=== PATIENT | male | born 1995 | race Caucasian/White ===

== ENCOUNTER 2021-07-10 19:23 | Day surgery (SDC) | payer MEDICAID, SELFPAY ==
[2021-07-10] VITALS (9 sets, daily range): BP systolic 107–149; BP diastolic 63–77; PULSE 52–108; RESP 14–18; TEMP 36.6–36.9; O2SAT 95–100; BMI 18.7
[2021-07-10] MEDS: nitroglycerin 0.4 mg sublingual Tablet SUBLINGUAL (20:07)
--- NOTE | 2021-07-10 20:18 | W.ED.GENADLT ---
HPI - General Adult General: Chief complaint: Airway/Esophagus Foreign Body Stated complaint: FOOD STUCK IN THROAT Time Seen by Provider: 07/10/21 19:51 Source: patient Mode of arrival: ambulatory Limitations: no limitations History of Present Illness: HPI narrative: 26-year-old male who states that he had eaten a normal bar 7 hours ago and feels like it stuck in his throat. He states he is not been able to handle secretions or swallow since then. He states he has had this happen multiple times in the past states he was able to throw it up. He has never had a EGD in the past. Denies any worsening improving factors. Associated symptoms: Deny chest pain, dyspnea, headache(s), nausea, rash or vomiting Review of Systems Const: Denies: fever(s), chills, body aches or change in appetite Eyes: Denies: blurry vision or eye discomfort ENMT: Reports: odynophagia Card: Denies: chest pain Resp: Denies: dyspnea GI: Denies: abdominal pain, nausea, vomiting or diarrhea : Denies: dysuria Musc: Denies: neck pain or back pain Skin/Breast: Denies: rash Neuro: Denies: headache(s) Psych: Denies: depression Matias/Lymph: Denies: easy bruising All/Imm: Denies: urticaria Physical Exam Const: COMMON NORMALS: no acute distress, patient oriented x3 and healthy appearing HENMT: COMMON NORMALS: normocephalic and atraumatic HEAD & SCALP: normocephalic and atraumatic Eye: COMMON NORMALS: Equal, round and reactive pupils present and EOMs intact bilaterally PUPIL: Yes Equal, round and reactive pupils present Neck/C-Spine: COMMON NORMALS: full ROM and supple Chest: COMMONS NORMALS: normal inspection of the chest and normal palpation of entire chest wall Resp: COMMON NORMALS: normal respiratory effort, No retractions, No use of accessory muscles and clear to auscultation bilaterally AUSCULTATION: clear to auscultation bilaterally Cardio: COMMON NORMALS: regular rate, regular rhythm and No murmurs present (Cardio) RATE: regular rate RHYTHM: regular rhythm GI: COMMON NORMALS: Normal to inspection, nondistended, normoactive bowel sounds present, Soft to palpation, non-tender and no masses PALPATION: Yes Soft to palpation Extremity: COMMON NORMALS: normal to inspection and full ROM Neuro: COMMON NORMALS: patient oriented x3, moves all extremities and no focal motor deficits Psych: COMMON NORMALS: mental status grossly normal, Normal thought process present and cooperative THOUGHT PROCESS: Normal thought process present Skin: COMMON NORMALS: no rashes or lesions noted and no wounds GENERAL SKIN EXAM: no rashes or lesions noted Course Vital Signs: Vital signs: Vital Signs Temperature 97.9 F 07/10/21 19:40 Pulse Rate 73 07/10/21 20:09 Respiratory Rate 18 07/10/21 20:09 Blood Pressure 107/68 07/10/21 20:09 Pulse Oximetry 99 07/10/21 20:09 MDM - General Adult MDM Narrative: Medical decision making narrative: Patient presents here with esophageal food bolus I spoke to Dr. Barone's who is coming in to take patient to the GI lab for an EGD. I did give him glucagon here and he had no improvement. Discharge Plan Discharge Patient Disposition: Admitted As Inpatient Clinical Impression: Food impaction of esophagus Qualifiers: Encounter type: initial encounter Qualified Code(s): T18.128A - Food in esophagus causing other injury, initial encounter Condition: Stable Coding Level of Care Code ED Master Scheduler for [facility] Fwd Exam Comprehensive
--- NOTE | 2021-07-10 20:20 | XRR_ITS ---
PROCEDURE INFORMATION: Exam: XR Soft Tissue Neck Exam date and time: 07/10/2021 8:20 PM Age: 26 years old Clinical indication: Dysphagia / difficulty swallowing TECHNIQUE: Imaging protocol: XR of the soft tissues of the neck. COMPARISON: No relevant prior studies available. FINDINGS: Airway: Normal. No abnormal narrowing. Soft tissues: Normal. Normal epiglottis. Bones/joints: Unremarkable. XR/XR soft tissue neck [id number] IMPRESSION: No acute findings.
--- NOTE | 2021-07-10 20:35 | PC.NURSE ---
glass of water provided.
--- NOTE | 2021-07-10 20:46 | XRR_ITS ---
PROCEDURE INFORMATION: Exam: XR Chest Exam date and time: 07/10/2021 8:46 PM Age: 26 years old Clinical indication: Other: Difficulty swallowing; Additional info: Fb, difficulty swallowing. TECHNIQUE: Imaging protocol: XR of the chest. Views: 1 view. COMPARISON: CR (NECK, ) 07/10/2021 8:19 PM FINDINGS: Lungs: Unremarkable. No consolidation. Pleural spaces: Unremarkable. No pleural effusion. No pneumothorax. Heart/Mediastinum: Unremarkable. No cardiomegaly. Bones/joints: Unremarkable. XR/XR chest 1V portable [id number] IMPRESSION: No acute findings.
--- NOTE | 2021-07-10 21:38 | PC.NURSE ---
Dr. Rolon at bedside. 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
--- NOTE | 2021-07-10 21:47 | W.PM.OPSFHP ---
Same Day Surgery H&P Indication for Procedure/HPI DATE OF PROCEDURE: July 10, 2021 CHIEF COMPLAINT/INDICATIONFOR SURGICAL PROCEDURE: Difficulty in swallowing PREOP DIAGNOSIS: Dysphagia PLANNED PROCEDRUE: Diagnostic EGD with possible food disimpaction This is a pleasant 26 years old gentleman with history of having granola bar at lunchtime, after couple of bites patient felt that food got stuck and was not able to expel it back and try to drink water but he would vomited it and felt discomfort, it has been about 7 hours and as his symptoms got worse came to the ER for further work-up and a soft tissue neck and chest x-rays were obtained that showed no acute findings. Patient said that this happened before few times but he never made it to the ER usually it resolves on its own. Patient denies hematemesis General surgery was consulted for further evaluation and care ROS All systems have been reviewed negative except as per the above or per problem list Medications/Allergies* Allergies/Adverse Reactions Allergy/AdvReac Type Severity Reaction Status Date / Time No Known Allergies Allergy Verified 07/10/21 21:51 Pertinent Exam Findings alert, oriented x 3, clear to auscultation bilaterally (No crepitus), regular rate & rhythm and procedure specific exam findings (Abdominal examination nontender abdominal examination nontender nondistende) Recommendations Surgery/Procedure today (EGD with possible food disimpaction) Other Plans: Plan of care; After thorough history and physical examination and reviewing the chart, plan to perform a diagnostic esophagogastroduodenoscopy with possible food disimpaction I discussed with the patient in detail the risk,benefits,alternatives and indications.The risk of aspiration, bleeding, soft tissue injury, perforation of the stomach/esophagus and other potential concomitant complications were explained to the patient in details,aslo the potential need for Thoracic and or Abdominal surgery to repair any complications.The patient understood this well and did agree to proceed. Rationale was carefully and clearly discussed with the patient.Appropriate informed consent have been reviewed and signed All questions have been answered and all concerns have been addressed to patient's satisfaction. Coding Level of Care Code Acute Aeronautical Inspector for Agnies[facility] Sykes
--- NOTE | 2021-07-10 22:01 | ANES.PREANE2 ---
Pre-Anesthetic Assessment Pre-Anesthetic Assessment: Height/Weight: Height 1.91 m Weight 68.039 kg Temp Pulse Resp BP Pulse Ox 97.9 F 73 18 120/77 95 07/10/21 21:51 07/10/21 21:51 07/10/21 21:51 07/10/21 21:51 07/10/21 21:51 Preop Diagnosis: Dysphagia Proposed Procedure: Operation Date: 07/10/21 22:00 Proposed Procedures p EGD(Not Applicable) - Darrel Rolon MD Was Beta Regine taken within 24 hours: N/A Was Clonidine taken within 24 hours: N/A Last intake: 07/10/21 1200 chewing tobacco 0 Social: Social History: Alcohol and Tobacco (chewing tobacco 1899) Exam: Pre-Anes Outpt Exam: alert, No oriented x 3, No clear to auscultation bilaterally and No regular rate & rhythm Airway: Submandibular: WNL Cervical ROM: WNL MP: 2 Dentition: Other Additional comments: poor dentition History/ROS: No significant history except as noted Pulmonary: Pulmonary: None reported CV/HEM: CV/HEM: None reported : : None reported Hepatic: Hepatic: None reported GI: GI: GERD Metabolic: Metabolic: None reported Musc/skel: Musc/skel: None reported Neuropsych: Neuropsych: Anxiety and Depression Anesthetic Plan: ASA status: 2 Anesthesia: General Risk of > 500 ml blood loss (7ml/kg in children): No Data Anesthesia Cardiac Studies: No Data to Display
[2021-07-10] MEDS: sodium chloride 0.9% 1,000 ML 30 ML IV (22:13)
== END 2021-07-10 23:30 | disposition home or self-care (01) ==
LOC: ER 21:16 → GILAB 21:52
PROVIDERS: Emergency Provider Emergency Medicine; Visit Provider Surgery
DX: R13.10 Dysphagia, unspecified (principal); K22.2 Esophageal obstruction; K29.70 Gastritis, unspecified, without bleeding
CPT/HCPCS: 43249; 70360; 71045; 96360; 96372; J0330; J1610; J2704; J3490; J7030

== ENCOUNTER → 2021-08-01 11:58 | Outpatient (BNVA) | payer OTHER, SELFPAY | PROVIDERS: Visit Provider Surgery | DX: K22.2 Esophageal obstruction (principal); Z20.822 Contact with and (suspected) exposure to COVID-19 | CPT/HCPCS: 87635 ==

== ENCOUNTER 2021-08-06 08:19 | Day surgery (SDC) | payer MEDICAID, SELFPAY ==
[2021-08-06 09:03] VITALS: BP 105/65; PULSE 52; RESP 18; TEMP 36.9; O2SAT 100
[2021-08-06] MEDS: sodium chloride 0.9% 1,000 ML 30 ML IV (09:14)
--- NOTE | 2021-08-06 09:59 | W.PM.OPSUD ---
Surgery/Procedure H&P Update DATE OF PROCEDURE: August 06, 2021 DATE H&P PERFORMED: 07/17/21 H&P UPDATE INFORMATION: I have reviewed H&P completed within last 30 days, I have examined patient prior to procedure and No changes to prior documentation PREOP DIAGNOSIS: Esophageal stricture PRIMARY INDICATION FOR PROCEDURE: The same PLANNED PROCEDURE: Operation Date: 08/06/21 10:00 Proposed Procedures p EGD Dilation W/ Balloon 59976 K22.2(Not Applicable) - Darrel Rolon MD
--- NOTE | 2021-08-06 10:34 | P.ANESASSM_ITS ---
Documented by User: Ryan Garcia Jr, MANAGEMENT AND BUDGET ANALYST 08/06/21 10:35 Pre-Anesthetic Assessment Pre-Anesthetic Assessment: Height/Weight: Height 1.91 m Weight 68.039 kg Temp Pulse Resp BP Pulse Ox 98.5 F 52 L 18 105/65 100 08/06/21 09:03 08/06/21 09:03 08/06/21 09:03 08/06/21 09:03 08/06/21 09:03 Preop Diagnosis: Esophageal stricture Proposed Procedure: Operation Date: 08/06/21 10:00 Proposed Procedures p EGD Dilation W/ Balloon 32116 K22.2(Not Applicable) - Darrel Rolon MD Was Beta Regine taken within 24 hours: N/A Was Clonidine taken within 24 hours: N/A Last intake: Intake Last Liquid Date 08/05/21 Last Liquid Time 23:30 Last Solid Date 08/05/21 Last Solid Time 23:30 Social: Social History: No alcohol and No tobacco Exam: Pre-Anes Outpt Exam: alert, oriented x 3, clear to auscultation bilaterally and regular rate & rhythm Airway: Submandibular: WNL Cervical ROM: WNL MP: 2 Dentition: Full History/ROS: No significant history except as noted and No significant c omplaints Pulmonary: Pulmonary: None reported CV/HEM: CV/HEM: None reported : : None reported Hepatic: Hepatic: None reported GI: GI: None reported Metabolic: Metabolic: None reported Musc/skel: Musc/skel: None reported Neuropsych: Neuropsych: None reported Anesthetic Plan: ASA status: 1 Anesthesia: MAC Risk of > 500 ml blood loss (7ml/kg in children): No Meds/Allergies Current Medications: Current Medications Generic Name Dose Route Start Last Admin Trade Name Freq PRN Reason Stop Dose Admin Sodium Chloride 1,000 mls @ 30 ml s/hr 08/06/21 09:00 08/06/21 09:14 Sodium Chloride 0.9% IV 08/07/21 08:59 30 mls/hr .Q24H MINDY Administration PFSH Anesthesia PFSH: Social History Smoking and tobacco status: never smoked Data Anesthesia Cardiac Studies: No Data to Display Documented by User: Herb Ga 08/06/21 12:19 PFSH Anesthesia PFSH: Social History Smoking and tobacco status: never smoked Data Anesthesia Cardiac Studies: No Data to Display
[2021-08-06 10:58] VITALS: BP 97/51; PULSE 57; RESP 16; TEMP 36.1; O2SAT 99
--- NOTE | 2021-08-06 11:00 | SUR.OPER ---
1044 Balloon dilation with 10, 11, 12 mm balloon. Clotest performed with clip used following biopsy.
[2021-08-06 11:09] VITALS: BP 92/50; PULSE 55; RESP 18; O2SAT 99
--- NOTE | 2021-08-06 14:11 | ANE.PACU2 ---
Inpatient post-anesthesia follow up: Airway intact: Yes Vital signs: Temperature 97.0 F Pulse Rate 55 Respiratory Rate 18 Blood Pressure 92/50 Pulse Oximetry 99 Oxygen Delivery Me thod Room Air Oxygen Flow Rate 4 Fraction of Inspir ed Oxygen Hydration adequate: Yes Nausea and vomiting: No Pain level: 1 Mental status: Baseline
[2021-08-07 13:19] LABS: H. Pylori / CLO Test Negative
== END 2021-08-06 11:35 | disposition home or self-care (01) ==
PROVIDERS: Visit Provider Surgery
DX: K22.2 Esophageal obstruction (principal); K21.00 Gastro-esophageal reflux disease with esophagitis, without bleeding; K29.70 Gastritis, unspecified, without bleeding
CPT/HCPCS: 43239; 43249; 87077; 96360; J2704; J7030

== ENCOUNTER 2021-09-04 08:04 | Outpatient (CLI) | payer MEDICAID, SELFPAY ==
--- NOTE | 2021-09-04 08:33 | FL_ITS ---
WS: [id number] UPPER GI WITH AIR TECHNICAL: FLUOROSCOPY TIME: 3.8 minutes CLINICAL INFORMATION: K22.2 - Esophageal obstruction COMPARISON: None. FINDINGS: Swallowing: No aspiration or penetration. Esophagus: Normal esophageal motility. Mild smooth tapered narrowing of the distal esophagus with his tory of esophageal dilatation. Mild irregularity distal esophagus due to recent dilatation. No eviden ce of high-grade stricture.Tiny esophageal web on the dynamic swallowing images in the cervical esoph maryellen. No significant narrowing. Gastroesophageal reflux: None observed. Stomach: Normal double contrast stomach. Duodenum: Normal duodenal C-loop. Other findings: None. FL/FL upper GI w air* [id number] IMPRESSION: 1. Mild smooth tapered narrowing of the distal esophagus above the GE junction with history of recent esophageal dilatation. No evidence of high-grade persis tent or recurrent stricture. 2. No significant hiatal hernia. 3. No visualized esophageal reflux. 4. Tiny esophageal web on the dynamic swallowing images in the cervical esopha aroldo. No significant narrowing. 5. Double contrast stomach and duodenum appear normal. 6. Normal examination.
== END 2021-09-04 08:05 | disposition home or self-care (01) ==
PROVIDERS: Visit Provider Surgery
DX: K22.2 Esophageal obstruction (principal)
CPT/HCPCS: 74246